=== PATIENT | female | born 1930 | race Caucasian/White ===

== ENCOUNTER 2019-02-09 15:19 | Inpatient (IN) ==
[2019-02-09] MEDS ORDERED: *HR* HYDROcodone/Acet 7.5/325 mg TABLET PO PRN ×2 (20:35→20:55)
[2019-02-09] MEDS ORDERED: Nitroglycerin 0.4 MG TAB.SUBL SL PRN (20:35)
[2019-02-09] MEDS ORDERED: Fluticasone Propionate Nasal 50 MCG/SPRAY BOTTLE NS PRN (20:35)
[2019-02-09] MEDS ORDERED: Ondansetron ODT 4 MG TAB.RAPDIS SL PRN (20:56)
[2019-02-09] MEDS ORDERED: Mag Hydrox/Al Hydrox/Simeth 30 ML UDC PO PRN (20:56)
[2019-02-09] MEDS ORDERED: Melatonin 3 MG TABLET PO PRN (21:00)
[2019-02-09] MEDS ORDERED: NON-FORMULARY MEDICATION 1 EACH EACH (Oxygen 2 L) NS SCH (21:00)
[2019-02-09] MEDS ORDERED: *HR* HYDROcodone/Acet 5/325 mg TABLET PO PRN (21:56)
[2019-02-09] MEDS: *HR* Warfarin 2 MG TABLET PO SCH (23:46)
[2019-02-09] MEDS: Famotidine 20 MG TABLET PO SCH (23:47)
[2019-02-09] MEDS: Vancomycin Oral Soln 125 MG/2.5 ML UDC PO SCH (23:48)
[2019-02-10 04:46] LABS: Basophils # 0.1 K/mcL (0.0-0.2); Basophils % 0.7 %; Eosinophils # 0.1 K/mcL (0.0-0.6); Hematocrit 37.7 % (35.3-44.9); Immature Granulocytes % 0.7 % (0-4); Lymphocytes % 10.3 %; Mean Corpuscular HGB Conc 31.8 g/dL (31.6-35.5); Mean Corpuscular Volume 91.1 fL (83.0-100.0); Mean Platelet Volume 9.7 fL (9.4-12.4); Monocytes % 8.5 %; Neutrophils # 9.5 K/mcL (1.6-8.9); Platelet Count 259 K/mcL (140-400); Red Blood Count 4.14 M/mcL (3.82-4.97); Segmented Neutrophils % 78.8 %; White Blood Count 12.1 K/mcL (4.3-11.1)
[2019-02-10 04:51] LABS: Lymphocytes # 1.3 K/mcL (0.6-4.6)
[2019-02-10 05:10] LABS: Alanine Aminotransferase 11 Units/L (7-52); Albumin 3.4 g/dL (3.5-5.7); Albumin/Globulin Ratio 1.3 (1.1-2.2); Alkaline Phosphatase 91 Units/L (34-104); Aspartate Amino Transferase 15 Units/L (13-39); BUN/Creatinine Ratio 10 (6-26); Bilirubin,Total 0.6 mg/dL (0.3-1.0); Blood Urea Nitrogen 5 mg/dL (8-23); Calcium 8.9 mg/dL (8.6-10.3); Carbon Dioxide 27 mEq/L (23-29); Chloride 104 mEq/L (98-107); Globulin 2.7 g/dL (2.4-3.5); Glucose 187 mg/dL (70-105); Magnesium 1.8 mg/dL (1.6-2.6); Osmolality,Calculated 286 (280-300); Potassium 4.3 mEq/L (3.5-5.1); Sodium 137 mEq/L (136-145); Total Protein 6.1 g/dL (6.4-8.9); eGFR For African Americans > 60 (> 60); eGFR For Non-African Americans > 60 (> 60)
[2019-02-10 05:23] LABS: INR 2.7; Prothrombin Time 30.9 Seconds (9.4-12.1)
[2019-02-10 05:24] LABS: Thyroid Stimulating Hormone 1.578 mcIU/mL (0.340-5.600)
[2019-02-10] MEDS: Multivit/Ca/Min/Fe/FA 1 TAB TABLET PO SCH (08:32)
[2019-02-10] MEDS: Mirabegron [Myrbetriq] 50 MG PO SCH (08:32)
[2019-02-10] MEDS: Nitrofurantoin (BID) 100 MG CAPSULE PO SCH ×2 (08:32→17:43)
[2019-02-10] MEDS: Famotidine 20 MG TABLET PO SCH ×2 (08:32→21:00)
[2019-02-10] MEDS: Metoprolol XL (24 HR) Succ 25 MG TAB.ER.24H PO SCH (08:32)
[2019-02-10] MEDS: Vancomycin Oral Soln 125 MG/2.5 ML UDC PO SCH ×4 (10:53→21:01)
--- NOTE | 2019-02-10 11:56 | Internal Med History&Physical ---
Date of Encounter: 02/10/19 Time of Encounter: 11:53 Assessment and Plan (1) C. difficile colitis Current visit: Yes Status: Acute Patient was treated at [facility] with oral antibiotics for her C. difficile and continues on oral vancomycin at this time. Patient continues to have loose stools. Denies any abdominal cramping. Patient remains afebrile. Most recent WBC at 12.1. We will continue with current medications and continue to monitor closely. Will evaluate patient's electrolyte status with serial labs (2) Atrial fibrillation Current visit: Yes Status: Chronic No acute issues. Patient continues with irregular heart rate with a controlled rate less than 100. We will continue on current medications which include Coumadin Qualifiers: Atrial fibrillation type: chronic Qualified Code(s): I48.2 - Chronic atrial fibrillation (3) CAD (coronary artery disease) Current visit: Yes Status: Chronic Patient with slightly labored breathing this morning which appears to have improved throughout the morning. Chest x-ray was obtained which shows slight pulmonary edema. Will review results with Dr. Ochoa. Currently patient respiratory effort appears relaxed. No hypoxia. We will continue to monitor closely Qualifiers: Coronary Disease-Associated Artery/Lesion type: unspecified vessel or lesion type [place] vs. transplanted heart: [place] heart Associated angina: angina presence unspecified Qualified Code(s): I25.10 - Atherosclerotic heart disease of [place] coronary artery without angina pectoris (4) HTN (hypertension) Current visit: Yes Status: Chronic Vital signs remained stable. We will continue with current medications. Qualifiers: Hypertension type: essential hypertension Qualified Code(s): I10 - Essential (primary) hypertension (5) UTI (urinary tract infection) Current visit: Yes Status: Acute No acute issues. Patient remains afebrile. WBC 12.1. Patient is poor historian and unable to evaluate for dysuria. Patient continues on Macrobid. Qualifiers: Urinary tract infection type: site unspecified Hematuria presence: with hematuria Qualified Code(s): N39.0 - Urinary tract infection, site not specified; R31.9 - Hematuria, unspecified (6) Diabetes Current visit: Yes Status: Chronic No acute issues. Patient is glucose appears well-controlled with most readings less than 200. We will continue with current medications and sliding scale coverage. Qualifiers: Diabetes mellitus type: type 2 Diabetes mellitus half-way insulin use: without half-way use Diabetes mellitus complication status: without complication Qualified Code(s): E11.9 - Type 2 diabetes mellitus without complications (7) Dementia Current visit: Yes Status: Chronic Patient remains confused, oriented to name only. Patient has episodes of agitation in which she becomes uncooperative and combative with staff. Patient was combative during exam this morning but approximately one hour later was relaxed and cooperative. Documentation of behavior issues noted from recent hospitalization. Patient continues with treatment for C. difficile and UTI. We will continue to monitor. Qualifiers: Dementia type: unspecified type Qualified Code(s): F03.91 - Unspecified dementia with behavioral disturbance Internal Medicine - H&P: HPI Chief complaint: C. difficile Admitted From: Hospital to Hospital Transfer History of present illness: Ms. Cárdenas is a 88 year old female, who was transferred to this facility for further rehabilitation due to generalized weakness to deconditioning, C. difficile and coronary artery disease. Patient was admitted to an [facility] hospital due to watery stools and abdominal cramping from C. difficile. Patient was treated with oral antibiotics and per medical records had improved and was discharged to this facility for rehabilitation. Patient also was found to have a UTI and remains on Macrobid at this time. Per medical records patient was recently treated for ESBL UTI last month. Patient's stay has been complicated with confusion and combativeness, which was evident this morning when she was combative with nursing staff and during her exam. Patient was later reexamined and appeared more appropriate at that time, able to answer simple questions appropriately and follows simple commands. Patient continues to have some difficulty following most directions and answering complex questions but was cooperative for an exam. Most of her history is being obtained through medical records as no family is present at this time. Patient has a history of dementia, atrial fibrillation, GERD, hypertension, diabetes, coronary artery disease and CVA. This morning patient was being evaluated due to her respiratory status which showed slight labored breathing. Patient was noted to have diminished breath sounds throughout her lower ware. Respiratory rate remained at 2022/minutes. Oximetry at that time showed a 97% saturation with a heart rate of 105. When patient was later reevaluated she was sitting in a chair and appeared more comfortable with her respiratory status. No signs of labored breathing were noted at that time and her respiratory rate was at 1618/minutes. Chest x-ray was obtained which showed slight pulmonary edema. 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 Psychiatric history: no psych history - Past Surgical History Surgical History: coronary bypass (CABG), hysterectomy Additional surgical history: bilat knee replacement, right shoulder replacement - Social History Smoking Status: Never smoker Smokeless Tobacco Status: No Alcohol use: none Drug use: none - Family History Father Family Member Ethnicity: Non- Living Status: Hx Family Cancer: Yes (Lung) Mother Family Member Ethnicity: Non- Living Status: Hx Family Cardiac Disorders: Yes Brother Family Member Ethnicity: Non- Living Status: Hx Family Cardiac Disorders: Yes Sister Adopted: No Family Member Ethnicity: Non- Living Status: Hx Family Endocrine Disorder: Yes (DM) Hx Family Neurologic Disorders: Yes (Alzheimer's disease) Internal Medicine - H&P: Meds Ferrous Sulfate [Iron] 325 mg PO DAILY 07/12/17 [History] Furosemide [Lasix] 40 mg PO BID 07/12/17 [History] Glimepiride [Amaryl] 2 mg PO DAILY 07/12/17 [History] Nitroglycerin [Nitrostat] 0.4 mg SL Q5M PRN 07/12/17 [History] Potassium Chloride [K-Tab ER] 20 meq PO DAILY 07/12/17 [History] Simvastatin [Zocor] 20 mg PO HS 07/12/17 [History] Albuterol Sulfate [Proair Hfa] 2 puff IH Q4H PRN 10/18/17 [History] Multivitamin [One Daily Multivitamin] 1 tab PO DAILY 10/18/17 [History] Oxygen 2 l NS HS 10/18/17 [History] Fluticasone Propionate Nasal [Flonase] 1 spray IN BID PRN 01/24/19 [History] Ranitidine HCl [Heartburn Relief] 150 mg PO BID 01/24/19 [History] Warfarin [Coumadin] 2 mg PO DAILY 01/24/19 [History] Acetaminophen [Tylenol Arthritis] 1,300 mg PO BID 01/25/19 [History] DULoxetine [Cymbalta] 30 mg PO DAILY 01/25/19 [History] Metoprolol Succinate [Toprol Xl] 25 mg PO DAILY 01/25/19 [History] Mirabegron [Myrbetriq] 50 mg PO DAILY 01/25/19 [History] HYDROcodone/Acet 7.5/325 mg [Cranks 7.5-325 mg] 0.5 tab PO TID PRN 5 Days #15 tablet 02/09/19 [Rx] Nitrofurantoin (BID) [Macrobid] 100 mg PO BIDWM #7 capsule 02/09/19 [Rx] Vancomycin Oral Soln [Firvanq] 250 mg PO QID 11 Days udc 02/09/19 [Rx] Allergy/AdvReac Type Severity Reaction Status Date / Time Penicillins AdvReac Anaphylaxis Verified 01/25/19 08:37 All Systems PM: A 10-system review of systems was performed and is negative for pertinent findings except as documented above in the HPI. - Constitutional Constitutional: as per HPI, no chills, no fever(s), no night sweats - EENT Eyes: as per HPI, no change in vision, no discharge, no pain, no photophobia Ears: as per HPI, no ear discharge, no ear pain, no tinnitus Nose, mouth and throat: as per HPI, no dysphagia, no nasal discharge, no neck pain, no sore throat - Breasts Breasts: as per HPI - Cardiovascular Cardiovascular ROS IM: as per HPI, no chest pain, no diaphoresis, no dyspnea, no lightheadedness, no palpitations, no syncope - Respiratory Respiratory: as per HPI, no cough, no dyspnea, no wheezing, no excessive phlegm production - Gastrointestinal Gastrointestinal: as per HPI, no abdominal pain, no diarrhea, no hematemesis, no hematochezia, no melena, no nausea, no vomiting - Genitourinary Genitourinary: as per HPI, no change in urinary stream, no dysuria, no flank pain, no hematuria Menstruation: as per HPI - Musculoskeletal Musculoskeletal ROS IM: as per HPI, no numbness, no tingling - Integumentary Integumentary IM: as per HPI, no rash, no unusual bruising - Neurological Neurological ROS: as per HPI, no confusion, no convulsions, no focal weakness, no numbness, no tingling, no tremor(s) - Psychiatric Psychiatric: as per HPI - Endocrine Endocrine IM: as per HPI - Hematologic/Lymphatic Hematologic/Lymphatic: as per HPI, no easy bruising - Constitutional Vitals: Temp Pulse Resp BP Pulse Ox 97.4 F L 96 20 145/87 96 02/10/19 11:05 02/10/19 11:05 02/10/19 11:05 02/10/19 11:05 02/10/19 11:05 General appearance: Present: A&O X 1 Exam: Patient is oriented to name only. Patient able to answer simple questions appropriately but becomes confused with any complex questions. He unable to follow simple directions but with complexed task she becomes confused. Patient at times can be agitated and combative with staff - Head Head exam: Present: atraumatic, normocephalic - Eye Eye exam: Present: PERRL, conjuntiva pink, sclera anicteric Pupils: Present: PERRL - Neck Neck exam general surgery: Present: supple, trachea midline. Absent: lymphadenopathy - Respiratory Respiratory exam: Present: decreased breath sounds, CTAB. Absent: accessory muscle use, rales, rhonchi, wheezes Additional comments: Currently patient appears relaxed with respiratory status with respiratory rate at 1618/limits. Lungs are clear throughout upper ware but noted diminished lower half of lung ware. Oximetry at 97% on 2 L oxygen. - Cardiovascular Cardiovascular exam: Present: irregular rhythm, RRR, +S1, +S2. Absent: diastolic murmur, gallop, rubs, systolic murmur Additional comments: Heart rate remains irregular due to atrial fibrillation. Ventricular rate controlled at less than 100 bpm. - GI/Abdominal GI/Abdominal exam: Present: normal bowel sounds, soft, no peritoneal signs. Absent: distended, tenderness - Extremities Exam Extremities exam: Present: warm, radial pulses palpable and symmetrical. Absent: calf tenderness, cyanotic, pedal edema - Neurological Exam Neurological exam: Present: CN II-XII intact, oriented X3, no focal deficits. Absent: pronater drift, facial droop, speech deficit - Skin Skin exam: Present: dry, intact Internal Med - H&P Results - Labs CBC & Chem 7: 02/10/19 04:30 02/10/19 04:30 Labs: Short CBC 02/10/19 Range/Units 04:30 WBC 12.1 H (4.3-11.1) K/mcL Hgb 12.0 (11.5-15.4) g/dL Hct 37.7 (35.3-44.9) % Plt Count 259 (140-400) K/mcL Neutrophils # 9.5 H (1.6-8.9) K/mcL BMP 02/10/19 04:30 Sodium 137 Potassium 4.3 Chloride 104 Carbon Dioxide 27 BUN 5 L Creatinine 0.51 L Glucose 187 H Calcium 8.9 Liver Function 02/10/19 Range/Units 04:30 Total Bilirubin 0.6 (0.3-1.0) mg/dL AST 15 (13-39) Units/L ALT 11 (7-52) Units/L Alkaline Phosphatase 91 (34-104) Units/L Albumin 3.4 L (3.5-5.7) g/dL - Impressions ITS Impressions Chest X-Ray 02/10/19 08:18 IMPRESSION: Pulmonary edema. Small-moderate pleural effusions increased in size from 02/04/2019. D/ / Kvng Henriquez MD / Kvng Henriquez MD Interpreting Provider: Kvng Henriquez MD
[2019-02-10] MEDS: Furosemide 40 MG TABLET PO SCH (13:49)
[2019-02-10] MEDS ORDERED: Dextrose Gel 15 GM/37.5 ML TUBE PO PRN ×2 (15:13)
[2019-02-10] MEDS ORDERED: *HR* Dextrose 50 % in Water (Syg) 50 ML SYRINGE IVP PRN (15:13)
[2019-02-10] MEDS ORDERED: D5% in Water 1,000 ML IVC PRN (15:13)
[2019-02-10] MEDS: *HR* Warfarin 2 MG TABLET PO SCH (17:42)
[2019-02-10] MEDS: Insulin LISPRO 300 UNITS/3 ML VIAL SQ SCH ×2 (17:43→21:00)
[2019-02-11 07:06] LABS: BUN/Creatinine Ratio 9 (6-26); Blood Urea Nitrogen 5 mg/dL (8-23); Calcium 8.8 mg/dL (8.6-10.3); Carbon Dioxide 31 mEq/L (23-29); Chloride 103 mEq/L (98-107); Glucose 186 mg/dL (70-105); Osmolality,Calculated 288 (280-300); Potassium 3.7 mEq/L (3.5-5.1); Sodium 138 mEq/L (136-145); eGFR For African Americans > 60 (> 60); eGFR For Non-African Americans > 60 (> 60)
[2019-02-11] MEDS: Furosemide 40 MG TABLET PO SCH (09:17)
[2019-02-11] MEDS: Multivit/Ca/Min/Fe/FA 1 TAB TABLET PO SCH (09:17)
[2019-02-11] MEDS: Metoprolol XL (24 HR) Succ 25 MG TAB.ER.24H PO SCH (09:17)
[2019-02-11] MEDS: Famotidine 20 MG TABLET PO SCH ×2 (09:17→21:09)
[2019-02-11] MEDS: Nitrofurantoin (BID) 100 MG CAPSULE PO SCH ×2 (09:17→19:05)
[2019-02-11] MEDS: Lactobacillus 1 EACH CAP.SPRINK PO SCH (09:17)
[2019-02-11] MEDS: Mirabegron [Myrbetriq] 50 MG PO SCH (09:28)
[2019-02-11] MEDS: Vancomycin Oral Soln 125 MG/2.5 ML UDC PO SCH ×4 (09:30→21:10)
[2019-02-11] MEDS: Insulin LISPRO 300 UNITS/3 ML VIAL SQ SCH ×3 (13:41→21:14)
--- NOTE | 2019-02-11 17:55 | Internal Med Progress Note ---
Date of Encounter: 02/11/19 Time of Encounter: 15:20 - Assessment and plan (1) Clostridioides difficile diarrhea Current Visit: No Status: Acute Assessment and plan: resolving causing dehydration and malnutrition appetite slowly improving as well as fluid intake continue oral vanco support and monitor intake and vitamin levels will check b12 iron vit d albumen will add probiotic and carafate treat thrush with nystatin (2) UTI (urinary tract infection) Current Visit: Yes Status: Acute Assessment and plan: has been on macrodantin oral day 5 will recheck urine will add low dose vit c Qualifiers: Urinary tract infection type: site unspecified Hematuria presence: with hematuria Qualified Code(s): N39.0 - Urinary tract infection, site not specified; R31.9 - Hematuria, unspecified - Subjective Interval history: 88 Yo WF transfer to [facility] for rehab after severe c diff diarrhea and dehydration. She was complicated with delerium and acute kidney injury. Her family reports pt is looking better she is taking oral vanco for c diff had 2 formed stools today ate some food today has not eaten in 2 weeks per family denies cp or sob still having bloating and gas feels tired has had some hallucination but not today is on duloxitine denies si was on ppi for years now on h2 alexus co gerd no melana General: In no apparent distress, alert and oriented 1. HEENT Nose: Patent without lesion noted. Mouth: furrowed tongue oral thrush . She has full upper plate dentures. Dentition is otherwise unremarkable. Neck: Supple with trachea midline. There is no thyromegaly or adenopathy and carotids are 2+ without bruit heard. Respiratory: No use of accessory muscles. Lungs are clear throughout. Normal airflow. Cardiovascular: Irregularly irregular consistent with atrial fibrillation, rate controlled, without murmur appreciated. Abdomen: Bowel sounds are hyper soft nt bloating . Extremities: No cyanosis clubbing or edema. Neurological: A and O 1. Cranial nerves II through XII are intact. No focal deficits and no abnormal movements or postures. Skin: Warm and non-diaphoretic with no lesions noted. Breasts, pelvic and rectal: Not examined. - Constitutional Vitals: Temp Pulse Resp BP Pulse Ox 97.6 F 100 20 142/76 96 02/11/19 07:14 02/11/19 07:14 02/11/19 07:14 02/11/19 07:14 02/11/19 07:14 General appearance: Present: A&O X 1 Internal Medicine: Result - Labs CBC & Chem 7: 02/10/19 04:30 02/11/19 06:30 Labs: BMP 02/11/19 06:30 Sodium 138 Potassium 3.7 Chloride 103 Carbon Dioxide 31 H BUN 5 L Creatinine 0.57 L Glucose 186 H Calcium 8.8 - ABG Interpretation ABG results: PT/INR, D-dimer PT 30.9 Seconds (9.4-12.1) H 02/10/19 04:30 Consult Discharge Plan - Plan Referrals: Corina Seo, CLOTHES DESIGNER [Primary Care Provider] -
[2019-02-11] MEDS: *HR* Warfarin 2 MG TABLET PO SCH (19:04)
[2019-02-11] MEDS: Nystatin SUSP 5 ML UD.LIQ PO SCH (21:09)
[2019-02-11] MEDS: Acetaminophen 325 MG TABLET PO PRN (21:10)
[2019-02-11] MEDS: Ascorbic Acid 500 MG TABLET PO SCH (21:10)
[2019-02-12 05:03] LABS: Hematocrit 36.4 % (35.3-44.9); Hemoglobin 11.8 g/dL (11.5-15.4); Mean Corpuscular HGB Conc 32.4 g/dL (31.6-35.5); Mean Corpuscular Hemoglobin 29.5 pg (28.0-33.3); Mean Platelet Volume 9.5 fL (9.4-12.4); Platelet Count 250 K/mcL (140-400); Red Cell Distribution Width 13.3 % (11.5-14.5); White Blood Count 9.2 K/mcL (4.3-11.1)
[2019-02-12 05:27] LABS: BUN/Creatinine Ratio 11 (6-26); Blood Urea Nitrogen 6 mg/dL (8-23); Calcium 8.7 mg/dL (8.6-10.3); Carbon Dioxide 32 mEq/L (23-29); Chloride 99 mEq/L (98-107); Glucose 196 mg/dL (70-105); Osmolality,Calculated 287 (280-300); Potassium 3.3 mEq/L (3.5-5.1); Sodium 137 mEq/L (136-145); eGFR For African Americans > 60 (> 60); eGFR For Non-African Americans > 60 (> 60)
[2019-02-12 07:54] LABS: INR 3.6; Prothrombin Time 40.9 Seconds (9.4-12.1)
[2019-02-12] MEDS: Nitrofurantoin (BID) 100 MG CAPSULE PO SCH ×2 (08:14→17:12)
[2019-02-12] MEDS: Ascorbic Acid 500 MG TABLET PO SCH ×2 (08:14→20:31)
[2019-02-12] MEDS: Famotidine 20 MG TABLET PO SCH ×2 (08:14→20:31)
[2019-02-12] MEDS: Metoprolol XL (24 HR) Succ 25 MG TAB.ER.24H PO SCH (08:14)
[2019-02-12] MEDS: Multivit/Ca/Min/Fe/FA 1 TAB TABLET PO SCH (08:14)
[2019-02-12] MEDS: Furosemide 40 MG TABLET PO SCH (08:14)
[2019-02-12] MEDS: Lactobacillus 1 EACH CAP.SPRINK PO SCH (08:14)
[2019-02-12] MEDS: Insulin LISPRO 300 UNITS/3 ML VIAL SQ SCH ×3 (08:14→17:34)
[2019-02-12] MEDS: Nystatin SUSP 5 ML UD.LIQ PO SCH ×4 (08:21→20:31)
[2019-02-12] MEDS: Mirabegron [Myrbetriq] 50 MG PO SCH (08:22)
[2019-02-12] MEDS: Vancomycin Oral Soln 125 MG/2.5 ML UDC PO SCH ×4 (08:27→20:30)
[2019-02-12 11:26] LABS: % Iron Saturation 21 % (15-50); Iron 40 mcg/dL (50-170); Transferrin 137 mg/dL (203-362)
--- NOTE | 2019-02-12 16:38 | Internal Med Progress Note ---
Date of Encounter: 02/12/19 Time of Encounter: 15:30 - Assessment and plan (1) Clostridioides difficile diarrhea Current Visit: No Status: Acute (2) UTI (urinary tract infection) Current Visit: Yes Status: Acute Qualifiers: Urinary tract infection type: site unspecified Hematuria presence: with hematuria Qualified Code(s): N39.0 - Urinary tract infection, site not specified; R31.9 - Hematuria, unspecified - Subjective Interval history: 88 Yo WF transfer to [facility] for rehab after severe c diff diarrhea and dehydration. She was complicated with delerium which seems to be slightly clearing. She reports that she saw hallucinations. Denies having them today. she is taking oral vanco for c diff had some formed stools today ate some food today still not eating well Prealbumen low at 11 k low at 3.3 on 20 meq daily potassium will get extra 40 today may benefit from megace blood sugars 170 - 200 pt dtr specifies she does not want pt having slide scale insulin has not eaten in 2 weeks when ill per family so will be somewhat malnourished denies cp or sob still having bloating and gas feels tired mood is stable on duloxitine denies si was on ppi for years now on h2 alexus c/o gerd states that carafate addition is helpful mouth feeling better on nystatin no active bleeding hb stable at 11 she is on chronic coumadin for a fib and inr is 3.6 today will order pharmacy to dose coumadin she is on macrodantin for uti General: In no apparent distress, alert and oriented 2 talkative good eye contact . HEENT neg except Mouth: furrowed tongue improving oral thrush . She has full upper plate dentures. Dentition is otherwise unremarkable. Neck: Supple with trachea midline. There is no thyromegaly and carotids are 2+ without bruit heard. Respiratory: No use of accessory muscles. Lungs are clear throughout. Normal airflow. Cardiovascular: Irregularly irregular consistent with atrial fibrillation, rate controlled, without murmur appreciated. Abdomen: Bowel sounds are hyper soft nt bloating . Extremities: No cyanosis clubbing or edema. pulses palp trace bilat Neurological: A and O 1. Cranial nerves II through XII are intact. No focal deficits . Skin: Warm and non-diaphoretic with no lesions noted. - Constitutional Vitals: Temp Pulse Resp BP Pulse Ox 98.6 F 100 18 136/94 99 02/12/19 08:40 02/12/19 10:54 02/12/19 10:54 02/12/19 10:54 02/12/19 10:54 General appearance: Present: A&O X 1 Internal Medicine: Result - Labs CBC & Chem 7: 02/12/19 04:47 02/12/19 04:47 Labs: Short CBC 02/12/19 Range/Units 04:47 WBC 9.2 (4.3-11.1) K/mcL Hgb 11.8 (11.5-15.4) g/dL Hct 36.4 (35.3-44.9) % Plt Count 250 (140-400) K/mcL BMP 02/12/19 04:47 Sodium 137 Potassium 3.3 L Chloride 99 Carbon Dioxide 32 H BUN 6 L Creatinine 0.53 L Glucose 196 H Calcium 8.7 - ABG Interpretation ABG results: PT/INR, D-dimer PT 40.9 Seconds (9.4-12.1) H 02/12/19 07:28 Consult Discharge Plan - Plan Referrals: Corina Seo, FIELD HEALTH OFFICER [Primary Care Provider] -
[2019-02-12] MEDS ORDERED: Insulin LISPRO 300 UNITS/3 ML VIAL SQ PRN ×2 (16:44)
[2019-02-12] MEDS ORDERED: Warfarin perPT PO PRN (18:00)
[2019-02-12 19:50] LABS: Bilirubin,Urine Negative (Negative); Blood,Urine Trace-intact (Negative); Clarity,Urine Slightly Cloudy (Clear); Color,Urine Yellow (Yellow); Glucose,Urine (UA) Normal (Normal); Ketones,Urine Negative (Negative); Leukocyte Esterase,Urine Negative (Negative); Nitrite,Urine Negative (Negative); Protein,Urine Negative (Neg-Trace); Urobilinogen,Urine Normal (Normal)
[2019-02-12 19:51] LABS: RBC,Urine 0-3 per hpf (0-3); Squamous Epithelial Cell,Urine Few per lpf (None-Few)
[2019-02-13 06:10] LABS: Hematocrit 36.6 % (35.3-44.9); Hemoglobin 11.6 g/dL (11.5-15.4); INR 3.4; Mean Corpuscular HGB Conc 31.7 g/dL (31.6-35.5); Mean Corpuscular Volume 91.5 fL (83.0-100.0); Mean Platelet Volume 9.6 fL (9.4-12.4); Platelet Count 249 K/mcL (140-400); Prothrombin Time 38.8 Seconds (9.4-12.1); Red Cell Distribution Width 13.4 % (11.5-14.5)
[2019-02-13 06:21] LABS: BUN/Creatinine Ratio 12 (6-26); Blood Urea Nitrogen 6 mg/dL (8-23); Calcium 8.6 mg/dL (8.6-10.3); Carbon Dioxide 33 mEq/L (23-29); Chloride 99 mEq/L (98-107); Glucose 210 mg/dL (70-105); Osmolality,Calculated 290 (280-300); Potassium 3.5 mEq/L (3.5-5.1); Sodium 138 mEq/L (136-145); eGFR For African Americans > 60 (> 60); eGFR For Non-African Americans > 60 (> 60)
[2019-02-13] MEDS: Ascorbic Acid 500 MG TABLET PO SCH ×2 (07:37→21:40)
[2019-02-13] MEDS: Multivit/Ca/Min/Fe/FA 1 TAB TABLET PO SCH (07:39)
[2019-02-13] MEDS: Nitrofurantoin (BID) 100 MG CAPSULE PO SCH ×2 (07:39→17:05)
[2019-02-13] MEDS: Nystatin SUSP 5 ML UD.LIQ PO SCH ×4 (07:40→21:41)
[2019-02-13] MEDS: Lactobacillus 1 EACH CAP.SPRINK PO SCH (07:40)
[2019-02-13] MEDS: Famotidine 20 MG TABLET PO SCH ×2 (07:40→21:42)
[2019-02-13] MEDS: Metoprolol XL (24 HR) Succ 25 MG TAB.ER.24H PO SCH (07:40)
[2019-02-13] MEDS: Furosemide 40 MG TABLET PO SCH ×2 (07:40→21:40)
[2019-02-13] MEDS: Mirabegron [Myrbetriq] 50 MG PO SCH (07:41)
[2019-02-13] MEDS: Vancomycin Oral Soln 125 MG/2.5 ML UDC PO SCH ×4 (09:04→21:41)
--- NOTE | 2019-02-13 09:59 | Internal Med Progress Note ---
Date of Encounter: 02/13/19 Time of Encounter: 09:57 - Assessment and plan (1) Atrial fibrillation Current Visit: Yes Status: Chronic Assessment and plan: Continue Coumadin. Monitor INR. Rate and rhythm stable. Qualifiers: Atrial fibrillation type: chronic Qualified Code(s): I48.2 - Chronic atrial fibrillation (2) UTI (urinary tract infection) Current Visit: Yes Status: Acute Assessment and plan: Improving. Continue Macrobid. Denies any urinary symptoms. Qualifiers: Urinary tract infection type: site unspecified Hematuria presence: with hematuria Qualified Code(s): N39.0 - Urinary tract infection, site not specified; R31.9 - Hematuria, unspecified (3) C. difficile colitis Current Visit: Yes Status: Acute Assessment and plan: Improving. Continue vancomycin. Continue contact precautions (4) Dementia Current Visit: Yes Status: Chronic Assessment and plan: Continue supportive care Qualifiers: Dementia type: unspecified type Qualified Code(s): F03.91 - Unspecified dementia with behavioral disturbance - Time Spent With Patient less than 15 minutes - Subjective Interval history: Currently lying in bed, states that she did not sleep well last night. Last b owel movement was this morning. Patient denies any pain or discomfort. Denies shortness of breath, chest pain, fever, chills, nausea vomiting or diarrhea. Remains in contact precautions for c-diff. Being treated with antibiotics for UTI. - Constitutional Vitals: Temp Pulse Resp BP Pulse Ox 98.8 F 89 16 156/80 97 02/13/19 07:24 02/13/19 07:24 02/13/19 07:24 02/13/19 07:24 02/13/19 07:24 General appearance: Present: cooperative, A&O X 1, pleasant, no acute distress, answers questions appropriately - Head Head exam: Present: atraumatic, normocephalic - Eye Eye exam: Present: PERRL, conjuntiva pink, sclera anicteric Pupils: Present: PERRL - Neck Neck exam general surgery: Present: supple, trachea midline. Absent: lymphadenopathy - Respiratory Respiratory exam: Present: CTAB. Absent: accessory muscle use, rales, rhonchi, wheezes - Cardiovascular Cardiovascular exam: Present: irregular rhythm, RRR, +S1, +S2. Absent: diastolic murmur, gallop, rubs, systolic murmur - GI/Abdominal GI/Abdominal exam: Present: normal bowel sounds, soft, no peritoneal signs. Absent: distended, tenderness - Extremities Exam Extremities exam: Present: warm, radial pulses palpable and symmetrical. Absent: calf tenderness, cyanotic, pedal edema - Neurological Exam Neurological exam: Present: CN II-XII intact, oriented X3, no focal deficits. Absent: pronater drift, facial droop, speech deficit - Skin Skin exam: Present: dry, intact Internal Medicine: Result - Labs CBC & Chem 7: 02/13/19 06:00 02/13/19 06:00 Labs: Short CBC 02/13/19 Range/Units 06:00 WBC 10.0 (4.3-11.1) K/mcL Hgb 11.6 (11.5-15.4) g/dL Hct 36.6 (35.3-44.9) % Plt Count 249 (140-400) K/mcL BMP 02/13/19 06:00 Sodium 138 Potassium 3.5 Chloride 99 Carbon Dioxide 33 H BUN 6 L Creatinine 0.51 L Glucose 210 H Calcium 8.6 Urine 02/12/19 Range/Units 19:00 Urine Color Yellow (Yellow) Urine Clarity Slightly Cloudy A (Clear) Urine pH 5.0 (5.0-8.0) pH Units Ur Specific [place] 1.010 (1.010-1.025) Urine Protein Negative (Neg-Trace) mg/dL Urine Glucose (UA) Normal (Normal) mg/dL - ABG Interpretation ABG results: PT/INR, D-dimer PT 38.8 Seconds (9.4-12.1) H 02/13/19 06:00 Consult Discharge Plan - Plan Referrals: Corina Seo, MARKETING CAMPAIGN ANALYST [Primary Care Provider] -
[2019-02-14 05:52] LABS: INR 2.5; Prothrombin Time 28.2 Seconds (9.4-12.1)
[2019-02-14] MEDS: Nitrofurantoin (BID) 100 MG CAPSULE PO SCH ×3 (09:27→17:34)
[2019-02-14] MEDS: Furosemide 40 MG TABLET PO SCH ×3 (09:27→17:34)
[2019-02-14] MEDS: Lactobacillus 1 EACH CAP.SPRINK PO SCH ×2 (09:28→11:02)
[2019-02-14] MEDS: Metoprolol XL (24 HR) Succ 25 MG TAB.ER.24H PO SCH ×2 (09:29→11:00)
[2019-02-14] MEDS: Multivit/Ca/Min/Fe/FA 1 TAB TABLET PO SCH ×2 (09:29→11:00)
[2019-02-14] MEDS: Nystatin SUSP 5 ML UD.LIQ PO SCH ×4 (09:29→21:03)
[2019-02-14] MEDS: Famotidine 20 MG TABLET PO SCH ×3 (09:29→20:53)
[2019-02-14] MEDS: Mirabegron [Myrbetriq] 50 MG PO SCH (09:29)
[2019-02-14] MEDS: Ascorbic Acid 500 MG TABLET PO SCH ×3 (09:29→20:53)
[2019-02-14] MEDS: Vancomycin Oral Soln 125 MG/2.5 ML UDC PO SCH ×4 (09:29→20:55)
--- NOTE | 2019-02-14 10:57 | Internal Med Progress Note ---
Date of Encounter: 02/14/19 Time of Encounter: 10:56 - Assessment and plan (1) Atrial fibrillation Current Visit: Yes Status: Chronic Assessment and plan: Continue Coumadin. Monitor INR. Rate and rhythm stable. Qualifiers: Atrial fibrillation type: chronic Qualified Code(s): I48.2 - Chronic atrial fibrillation (2) UTI (urinary tract infection) Current Visit: Yes Status: Acute Assessment and plan: Improving. Continue Macrobid. Denies any urinary symptoms. Qualifiers: Urinary tract infection type: site unspecified Hematuria presence: with hematuria Qualified Code(s): N39.0 - Urinary tract infection, site not specified; R31.9 - Hematuria, unspecified (3) C. difficile colitis Current Visit: Yes Status: Acute Assessment and plan: Improving. Continue vancomycin. Continue contact precautions (4) Dementia Current Visit: Yes Status: Chronic Assessment and plan: Continue supportive care Qualifiers: Dementia type: unspecified type Qualified Code(s): F03.91 - Unspecified dementia with behavioral disturbance - Time Spent With Patient less than 15 minutes - Subjective Interval history: Currently lying in bed, states that she did not sleep well last night. refused medications this am, but later agreed to take them. Last bowel movement was this morning. Patient denies any pain or discomfort. Denies shortness of breath, chest pain, fever, chills, nausea vomiting or diarrhea. Remains in contact precautions for c-diff. - Constitutional Vitals: Temp Pulse Resp BP Pulse Ox 97.8 F 98 16 137/80 96 02/14/19 07:15 02/14/19 07:15 02/14/19 07:15 02/14/19 07:15 02/14/19 07:15 General appearance: Present: cooperative, A&O X 1, pleasant, no acute distress, answers questions appropriately - Head Head exam: Present: atraumatic, normocephalic - Eye Eye exam: Present: PERRL, conjuntiva pink, sclera anicteric Pupils: Present: PERRL - Neck Neck exam general surgery: Present: supple, trachea midline. Absent: lymphadenopathy - Respiratory Respiratory exam: Present: CTAB. Absent: accessory muscle use, rales, rhonchi, wheezes - Cardiovascular Cardiovascular exam: Present: RRR, +S1, +S2. Absent: diastolic murmur, gallop, rubs, systolic murmur - GI/Abdominal GI/Abdominal exam: Present: normal bowel sounds, soft, no peritoneal signs. Absent: distended, tenderness - Extremities Exam Extremities exam: Present: warm, radial pulses palpable and symmetrical. Absent: calf tenderness, cyanotic, pedal edema - Neurological Exam Neurological exam: Present: CN II-XII intact, oriented X3, no focal deficits. Absent: pronater drift, facial droop, speech deficit - Skin Skin exam: Present: dry, intact Internal Medicine: Result - Labs CBC & Chem 7: 02/13/19 06:00 02/13/19 06:00 - ABG Interpretation ABG results: PT/INR, D-dimer PT 28.2 Seconds (9.4-12.1) H 02/14/19 05:35 Consult Discharge Plan - Plan Referrals: Corina Seo, TECHNICAL SYSTEMS ARCHITECT [Primary Care Provider] -
[2019-02-14] MEDS ORDERED: Insulin LISPRO 300 UNITS/3 ML VIAL SQ ONE (17:06)
[2019-02-14] MEDS ORDERED: *HR* Warfarin 2 MG TABLET PO ONE (18:00)
[2019-02-15 06:34] LABS: INR 2.3
[2019-02-15] MEDS: Metoprolol XL (24 HR) Succ 25 MG TAB.ER.24H PO SCH (08:01)
[2019-02-15] MEDS: Nystatin SUSP 5 ML UD.LIQ PO SCH ×4 (08:01→20:35)
[2019-02-15] MEDS: Famotidine 20 MG TABLET PO SCH ×2 (08:01→20:35)
[2019-02-15] MEDS: Furosemide 40 MG TABLET PO SCH ×2 (08:03→17:03)
[2019-02-15] MEDS: Nitrofurantoin (BID) 100 MG CAPSULE PO SCH (08:03)
[2019-02-15] MEDS: Multivit/Ca/Min/Fe/FA 1 TAB TABLET PO SCH (08:04)
[2019-02-15] MEDS: Ascorbic Acid 500 MG TABLET PO SCH ×2 (08:04→20:35)
[2019-02-15] MEDS: Vancomycin Oral Soln 125 MG/2.5 ML UDC PO SCH ×4 (08:06→20:36)
[2019-02-15] MEDS: Mirabegron [Myrbetriq] 50 MG PO SCH (08:19)
[2019-02-15] MEDS: Lactobacillus 1 EACH CAP.SPRINK PO SCH (08:19)
--- NOTE | 2019-02-15 10:21 | Internal Med Progress Note ---
Date of Encounter: 02/15/19 Time of Encounter: 10:18 - Assessment and plan (1) C. difficile colitis Current Visit: Yes Status: Acute Assessment and plan: No acute issues reported. Patient continues with loose stools. We will co ntinue on oral vancomycin. Afebrile. (2) Atrial fibrillation Current Visit: Yes Status: Chronic Assessment and plan: No acute issues. Patient's heart rate has remained controlled less than 100. Patient continues on current medication Qualifiers: Atrial fibrillation type: chronic Qualified Code(s): I48.2 - Chronic atrial fibrillation (3) CAD (coronary artery disease) Current Visit: Yes Status: Chronic Assessment and plan: No acute issues. Patient denies any chest palpitations or discomforts. We will continue on current medications. Vital signs stable Qualifiers: Coronary Disease-Associated Artery/Lesion type: unspecified vessel or lesion type [place] vs. transplanted heart: [place] heart Associated angina: angina presence unspecified Qualified Code(s): I25.10 - Atherosclerotic heart disease of [place] coronary artery without angina pectoris (4) HTN (hypertension) Current Visit: Yes Status: Chronic Assessment and plan: Vital signs remained stable. We will continue on current medications. Qualifiers: Hypertension type: essential hypertension Qualified Code(s): I10 - Es sential (primary) hypertension (5) UTI (urinary tract infection) Current Visit: Yes Status: Acute Assessment and plan: No acute issues. Patient denies any dysuria or frequency. Patient's antibiotics for UTI have finished their course today. We will continue to monitor closely Qualifiers: Urinary tract infection type: site unspecified Hematuria presence: with hematuria Qualified Code(s): N39.0 - Urinary tract infection, site not specified; R31.9 - Hematuria, unspecified (6) Diabetes Current Visit: Yes Status: Chronic Assessment and plan: Patient's glucose remains poorly controlled with most fingersticks readings greater than 200. Nursing has reported patient with noncompliance with diet where she will not eat much on her trays but will eat different foods that were brought in that are high calorie. Patient's diet was discussed with patient and her daughter. Treatment plans were discussed and we will continue with current fingersticks and sliding scale insulin. Qualifiers: Diabetes mellitus type: type 2 Diabetes mellitus [employer] intermediary insulin use: w [facility] ocean [employer] intermediary use Diabetes mellitus complication status: without compl ication Qualified Code(s): E11.9 - Type 2 diabetes mellitus without compl ications (7) Dementia Current Visit: Yes Status: Chronic Assessment and plan: No acute issues. Patient is appropriate and compliant during exam and while [place] is present. No reported behavior issues from nursing and therapy staff will patient will refuse therapy or treatment at times. 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 Patient with multiple complaints about taking her medications and the quality of food. Patient's daughter is at bedside. Patient's diet compliance due to her diabetes was discussed with reports of noncompliance from nursing. - Constitutional Vitals: Temp Pulse Resp BP Pulse Ox 98.5 F 99 16 150/78 95 02/15/19 07:16 02/15/19 07:16 02/15/19 07:16 02/15/19 07:16 02/15/19 07:16 General appearance: Present: cooperative, A&O X 1, A&O X 3, pleasant, no acute distress, answers questions appropriately Exam: Patient currently is appropriate and cooperative, but reportedly has had behavior issues reported over the past few days becoming agitated with care - Head Head exam: Present: atraumatic, normocephalic - Eye Eye exam: Present: PERRL, conjuntiva pink, sclera anicteric Pupils: Present: PERRL - Neck Neck exam general surgery: Present: supple, trachea midline. Absent: lymphadenopathy - Respiratory Respiratory exam: Present: decreased breath sounds, CTAB. Absent: accessory muscle use, rales, rhonchi, wheezes - Cardiovascular Cardiovascular exam: Present: RRR, +S1, +S2. Absent: diastolic murmur, gallop, rubs, systolic murmur - GI/Abdominal GI/Abdominal exam: Present: normal bowel sounds, soft, no peritoneal signs. Absent: distended, tenderness - Extremities Exam Extremities exam: Present: warm, radial pulses palpable and symmetrical. Absent: calf tenderness, cyanotic, pedal edema - Neurological Exam Neurological exam: Present: CN II-XII intact, oriented X3, no focal deficits. Absent: pronater drift, facial droop, speech deficit - Skin Skin exam: Present: dry, intact Internal Medicine: Result - Labs CBC & Chem 7: 02/13/19 06:00 02/13/19 06:00 - ABG Interpretation ABG results: PT/INR, D-dimer PT 26.0 Seconds (9.4-12.1) H 02/15/19 06:22 Consult Discharge Plan - Plan Referrals: Corina Seo, PIPE SMOKER MACHINE OPERATOR [Primary Care Provider] -
[2019-02-15] MEDS ORDERED: *HR* Warfarin 2 MG TABLET PO ONE (18:00)
[2019-02-16] MEDS: Ascorbic Acid 500 MG TABLET PO SCH ×2 (07:53→21:05)
[2019-02-16] MEDS: Metoprolol XL (24 HR) Succ 25 MG TAB.ER.24H PO SCH (07:53)
[2019-02-16] MEDS: Lactobacillus 1 EACH CAP.SPRINK PO SCH (07:53)
[2019-02-16] MEDS: Nystatin SUSP 5 ML UD.LIQ PO SCH ×4 (07:53→21:04)
[2019-02-16] MEDS: Famotidine 20 MG TABLET PO SCH ×2 (07:53→21:04)
[2019-02-16] MEDS: Furosemide 40 MG TABLET PO SCH ×2 (07:53→16:19)
[2019-02-16] MEDS: Multivit/Ca/Min/Fe/FA 1 TAB TABLET PO SCH (07:53)
[2019-02-16] MEDS: Vancomycin Oral Soln 125 MG/2.5 ML UDC PO SCH ×4 (07:54→21:06)
[2019-02-16] MEDS: Mirabegron [Myrbetriq] 50 MG PO SCH (08:06)
--- NOTE | 2019-02-16 09:57 | Internal Med Progress Note ---
Date of Encounter: 02/16/19 Time of Encounter: 09:55 - Assessment and plan (1) Atrial fibrillation Current Visit: Yes Status: Chronic Assessment and plan: Continue Coumadin. Monitor INR. Rate and rhythm stable. Qualifiers: Atrial fibrillation type: chronic Qualified Code(s): I48.2 - Chronic atrial fibrillation (2) C. 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 Patient denies any pain or discomfort. Denies shortness of breath, chest pain, fever, chills, nausea vomiting or diarrhea. bowels moving as normal. appetite improving, maintaining hydration. Remains in contact precautions for c-diff. ambulated 100feet with therapy. - Constitutional Vitals: Temp Pulse Resp BP Pulse Ox 98.6 F 98 16 138/71 97 02/16/19 07:54 02/16/19 07:54 02/16/19 07:54 02/16/19 07:54 02/16/19 07:54 General appearance: Present: cooperative, A&O X 1, A&O X 3, pleasant, no acute distress, answers questions appropriately - Head Head exam: Present: atraumatic, normocephalic - Eye Eye exam: Present: PERRL, conjuntiva pink, sclera anicteric Pupils: Present: PERRL - Neck Neck exam general surgery: Present: supple, trachea midline. Absent: lymphadenopathy - Respiratory Respiratory exam: Present: CTAB. Absent: accessory muscle use, rales, rhonchi, wheezes - Cardiovascular Cardiovascular exam: Present: irregular rhythm, +S1, +S2. Absent: diastolic murmur, gallop, rubs, systolic murmur - GI/Abdominal GI/Abdominal exam: Present: normal bowel sounds, soft, no peritoneal signs. Absent: distended, tenderness - Extremities Exam Extremities exam: Present: warm, radial pulses palpable and symmetrical. Absent: calf tenderness, cyanotic, pedal edema - Neurological Exam Neurological exam: Present: CN II-XII intact, oriented X3, no focal deficits. Absent: pronater drift, facial droop, speech deficit - Skin Skin exam: Present: dry, intact Internal Medicine: Result - Labs CBC & Chem 7: 02/13/19 06:00 02/13/19 06:00 - ABG Interpretation ABG results: PT/INR, D-dimer PT 26.0 Seconds (9.4-12.1) H 02/15/19 06:22 Consult Discharge Plan - Plan Referrals: Corina Seo, WOOD HEEL FITTER MACHINE [Primary Care Provider] -
[2019-02-16 09:59] LABS: Prothrombin Time 22.9 Seconds (9.4-12.1)
[2019-02-16] MEDS ORDERED: *HR* Warfarin 2 MG TABLET PO ONE (18:00)
[2019-02-16] MEDS: Acetaminophen 325 MG TABLET PO PRN (21:06)
[2019-02-17 05:06] LABS: INR 2.3; Prothrombin Time 26.1 Seconds (9.4-12.1)
[2019-02-17] MEDS: Furosemide 40 MG TABLET PO SCH ×2 (08:08→16:22)
[2019-02-17] MEDS: Metoprolol XL (24 HR) Succ 25 MG TAB.ER.24H PO SCH (08:08)
[2019-02-17] MEDS: Famotidine 20 MG TABLET PO SCH ×2 (08:08→19:50)
[2019-02-17] MEDS: Lactobacillus 1 EACH CAP.SPRINK PO SCH (08:08)
[2019-02-17] MEDS: Ascorbic Acid 500 MG TABLET PO SCH ×2 (08:08→19:50)
[2019-02-17] MEDS: Multivit/Ca/Min/Fe/FA 1 TAB TABLET PO SCH (08:08)
[2019-02-17] MEDS: *HR* Glimepiride 2 MG TABLET PO SCH (08:08)
[2019-02-17] MEDS: Nystatin SUSP 5 ML UD.LIQ PO SCH ×4 (08:08→19:50)
[2019-02-17] MEDS: Vancomycin Oral Soln 125 MG/2.5 ML UDC PO SCH ×4 (08:09→19:49)
[2019-02-17] MEDS: Mirabegron [Myrbetriq] 50 MG PO SCH (08:17)
--- NOTE | 2019-02-17 09:56 | Internal Med Progress Note ---
Date of Encounter: 02/17/19 Time of Encounter: 09:54 - Assessment and plan (1) C. difficile colitis Current Visit: Yes Status: Acute Assessment and plan: Patient has had complaints of nausea this morning. No vomiting. Patient c ontinues with loose stools. We will continue on oral vancomycin. Afebrile. (2) Atrial fibrillation Current Visit: Yes Status: Chronic Assessment and plan: No acute issues. Patient's heart rate has remained controlled less than 100. Patient continues on current medication Qualifiers: Atrial fibrillation type: chronic Qualified Code(s): I48.2 - Chronic atrial fibrillation (3) CAD (coronary artery disease) Current Visit: Yes Status: Chronic Assessment and plan: No acute issues. Patient denies any chest palpitations or discomforts. We will continue on current medications. Vital signs stable Qualifiers: Coronary Disease-Associated Artery/Lesion type: unspecified vessel or lesion type [place] vs. transplanted heart: [place] heart Associated angina: angina presence unspecified Qualified Code(s): I25.10 - Atherosclerotic heart disease of [place] coronary artery without angina pectoris (4) HTN (hypertension) Current Visit: Yes Status: Chronic Assessment and plan: Vital signs remained stable. We will continue on current medications. Qualifiers: Hypertension type: essential hypertension Qualified Code(s): I10 - Essential (primary) hypertension (5) Diabetes Current Visit: Yes Status: Chronic Assessment and plan: Patient's glucose remains poorly controlled with most fingersticks readings greater than 200. Nursing has reported patient with noncompliance with diet where she will not eat much on her trays but will eat different foods that were brought in that are high calorie. Patient's diet was discussed with patient and her daughter. Treatment plans were discussed and we will continue with current fingersticks and sliding scale insulin. Qualifiers: Diabetes mellitus type: type 2 Diabetes mellitus assisted insulin use: without emt intermediate use Diabetes mellitus complication status: without complication Qualified Code(s): E11.9 - Type 2 diabetes mellitus without complications (6) Dementia Current Visit: Yes Status: Chronic Assessment and plan: No acute issues. No reported behavior issues from nursing and therapy staff will patient will refuse therapy or treatment at times. 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 Patient with complaints of nausea this morning which she states began before breakfast. Denies any vomiting or abdominal discomforts. - Constitutional Vitals: Temp Pulse Resp BP Pulse Ox 98.7 F 84 14 144/80 92 02/17/19 07:00 02/17/19 08:15 02/17/19 07:00 02/17/19 08:15 02/17/19 07:00 General appearance: Present: cooperative, A&O X 1, A&O X 3, pleasant, no acute distress, answers questions appropriately - Head Head exam: Present: atraumatic, normocephalic - Eye Eye exam: Present: PERRL, conjuntiva pink, sclera anicteric Pupils: Present: PERRL - Neck Neck exam general surgery: Present: supple, trachea midline. Absent: lymphadenopathy - Respiratory Respiratory exam: Present: decreased breath sounds, CTAB, rales. Absent: accessory muscle use, rhonchi, wheezes Additional comments: Respiratory effort appears relaxed while at rest. Patient's lungs are clear throughout upper ware but noted fine posterior basilar rales. No productive cough noted. - Cardiovascular Cardiovascular exam: Present: irregular rhythm, RRR, +S1, +S2. Absent: diastolic murmur, gallop, rubs, systolic murmur Additional comments: Heart rate remains irregular with a controlled ventricular rate less than 100. - GI/Abdominal GI/Abdominal exam: Present: normal bowel sounds, soft, no peritoneal signs. Absent: distended, tenderness - Extremities Exam Extremities exam: Present: warm, radial pulses palpable and symmetrical. Absent: calf tenderness, cyanotic, pedal edema - Neurological Exam Neurological exam: Present: CN II-XII intact, oriented X3, no focal deficits. Absent: pronater drift, facial droop, speech deficit - Skin Skin exam: Present: dry, intact Internal Medicine: Result - Labs CBC & Chem 7: 02/13/19 06:00 02/13/19 06:00 - ABG Interpretation ABG results: PT/INR, D-dimer PT 26.1 Seconds (9.4-12.1) H 02/17/19 04:54 Consult Discharge Plan - Plan Referrals: Corina Seo, SHIRT LINE OPERATOR [Primary Care Provider] -
--- NOTE | 2019-02-17 11:20 | Discharge Summary ---
<Francisco Javier Calderon R - Last Filed: 02/17/19 11:15> Orders not resulted at time of discharge: Pending orders 02/18/19 06:12 INR/PT [Prothrombin Time INR] [COAG] DAILY - Discharge Diagnosis (1) C. difficile colitis Priority: Primary Status: Acute Comments: Patient continues on oral vancomycin 4 times a day for C. difficile and will complete her antibiotic regimen on 02/22/19 (2) Atrial fibrillation Priority: Secondary Status: Chronic Comments: No acute issues during her stay of facility. Patient's heart rate has remained stable and controlled less than 100 ventricular rate. We will continue with her current medications Qualifiers: Atrial fibrillation type: chronic Qualified Code(s): I48.2 - Chronic atrial fibrillation (3) CAD (coronary artery disease) Priority: Secondary Status: Chronic Comments: No acute issues during stay of facility. Patient denies any chest discomforts or palpitations. We will continue with current medications. 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 Qualifiers: Coronary Disease-Associated Artery/Lesion type: unspecified vessel or lesion type [place] vs. transplanted heart: [place] heart Associated angina: angina presence unspecified Qualified Code(s): I25.10 - Atherosclerotic heart disease of [place] coronary artery without angina pectoris (4) HTN (hypertension) Priority: Secondary Status: Chronic Comments: Vital signs are remaining stable during her stay of facility. Patient is continue with home medications and follow-up with PCP after discharge Qualifiers: Hypertension type: essential hypertension Qualified Code(s): I10 - Essential (primary) hypertension (5) Diabetes Priority: Secondary Status: Chronic Comments: Patients glucose has been elevated during her stay. Questionable compliance with diet. Patient is continue with her home medications and follow-up with her PCP within one week after discharge for further evaluation and treatment. 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 Patient at times is noncompliant with treatment. Currently patient appears relaxed and is appropriate with conversation. We will continue with follow-up with PCP. Patient is being discharged home with daughter Qualifiers: Dementia type: unspecified type Qualified Code(s): F03.91 - Unspecified dementia with behavioral disturbance Hospital course: Ms. Cárdenas is a 88 year old female, who was transferred to this facility for further rehabilitation due to generalized weakness after being hospitalized for C. difficile. Patient continues on vancomycin at this time with her course due to finish on 02/22/19. Patient continues with loose stools. Has remained afebrile during her stay. Patient with a history of COPD and CHF and continues with current medications. Patient has had titration of diuretics after being ad mitted to this facility. Patient also has had issues with dementia, having episodes of agitation and noncompliance. Patient also continues to have elevated glucose levels and is being discharged home with her home medications. Patient is to follow-up with her PCP within one week for further evaluation and treatment. Patient is to follow-up with therapy through outpatient services of home health care. Discharge discussed with: patient Time spent discussing smoking cessation with patient: 3 to 10 minutes - Time Spent with Patient Total time spent providing and/or coordinating discharge services: Time spent: Less than 30 minutes - Discharge Medications Prescriptions: New Vancomycin HCl 250 mg PO QID 5 Days #30 cap No Action Simvastatin [Zocor] 20 mg PO HS Potassium Chloride [K-Tab ER] 20 meq PO DAILY Glimepiride [Amaryl] 2 mg PO DAILY Furosemide [Lasix] 40 mg PO BID Nitroglycerin [Nitrostat] 0.4 mg SL Q5M PRN PRN Reason: Chest Pain Ferrous Sulfate [Iron] 325 mg PO DAILY Oxygen 2 l NS HS Multivitamin [One Daily Multivitamin] 1 tab PO DAILY Albuterol Sulfate [Proair Hfa] 2 puff IH Q4H PRN PRN Reason: Shortness Of Breath Fluticasone Propionate Nasal [Flonase] 1 spray IN BID PRN PRN Reason: Allergy Symptoms Warfarin [Coumadin] 2 mg PO DAILY Ranitidine HCl [Heartburn Relief] 150 mg PO BID DULoxetine [Cymbalta] 30 mg PO DAILY Metoprolol Succinate [Toprol Xl] 25 mg PO DAILY Mirabegron [Myrbetriq] 50 mg PO DAILY Acetaminophen [Tylenol Arthritis] 1,300 mg PO BID Vancomycin Oral Soln [Firvanq] 250 mg PO QID 11 Days udc Nitrofurantoin (BID) [Macrobid] 100 mg PO BIDWM #7 capsule HYDROcodone/Acet 7.5/325 mg [[place] 7.5-325 mg] 0.5 tab PO TID PRN 5 Days #15 tablet PRN Reason: Pain Home Medications: Ferrous Sulfate [Iron] 325 mg PO DAILY 07/12/17 [History] Furosemide [Lasix] 40 mg PO BID 07/12/17 [History] Glimepiride [Amaryl] 2 mg PO DAILY 07/12/17 [History] Nitroglycerin [Nitrostat] 0.4 mg SL Q5M PRN 07/12/17 [History] Potassium Chloride [K-Tab ER] 20 meq PO DAILY 07/12/17 [History] Simvastatin [Zocor] 20 mg PO HS 07/12/17 [History] Albuterol Sulfate [Proair Hfa] 2 puff IH Q4H PRN 10/18/17 [History] Multivitamin [One Daily Multivitamin] 1 tab PO DAILY 10/18/17 [History] Oxygen 2 l NS HS 10/18/17 [History] Fluticasone Propionate Nasal [Flonase] 1 spray IN BID PRN 01/24/19 [History] Ranitidine HCl [Heartburn Relief] 150 mg PO BID 01/24/19 [History] Warfarin [Coumadin] 2 mg PO DAILY 01/24/19 [History] Acetaminophen [Tylenol Arthritis] 1,300 mg PO BID 01/25/19 [History] DULoxetine [Cymbalta] 30 mg PO DAILY 01/25/19 [History] Metoprolol Succinate [Toprol Xl] 25 mg PO DAILY 01/25/19 [History] Mirabegron [Myrbetriq] 50 mg PO DAILY 01/25/19 [History] HYDROcodone/Acet 7.5/325 mg [[place] 7.5-325 mg] 0.5 tab PO TID PRN 5 Days #15 tablet 02/09/19 [Rx] Nitrofurantoin (BID) [Macrobid] 100 mg PO BIDWM #7 capsule 02/09/19 [Rx] Vancomycin Oral Soln [Firvanq] 250 mg PO QID 11 Days udc 02/09/19 [Rx] Vancomycin HCl 250 mg PO QID 5 Days #30 cap 02/17/19 [Rx] Allergies/Adverse Reactions: Allergy/AdvReac Type Severity Reaction Status Date / Time Penicillins AdvReac Anaphylaxis Verified 01/25/19 08:37 Date of admission: 02/09/19 17:23 Primary care physician: Corina Seo CNP Consults: 02/09/19 19:14 Consult to Occupational Therapy [CONS] Routine Comment: eval for weakness/therapy Reason for Consult: eval for weakness for therapy Does patient have active BEDREST order?: No Is patient medically & hemodynamically stable?: Yes Patient assessed for mobility or mobilized this visit?: No Consult to Physical Therapy [CONS] Routine Comment: eval for therapy Reason for Consult: admission eval for therapy Does patient have active BEDREST order?: No Is patient medically & hemodynamically stable?: Yes Patient assessed for mobility or mobilized this visit?: No Consult to Recreational Therapy [CONS] Routine Comment: Consult to Social Research Assistant [CONS] Routine Reason for SW Consult: D/C eval 02/09/19 19:19 Consult to Nutrition [CONS] Routine Comment: Consulting Provider: NUTRITION Reason for Dietary Consult: Diet Education PO Supplementation Discharging clinician: Jayson Ochoa - Constitutional Vitals: Temp Pulse Resp BP Pulse Ox 98.7 F 84 14 144/80 92 02/17/19 07:00 02/17/19 08:15 02/17/19 07:00 02/17/19 08:15 02/17/19 07:00 General appearance: Present: cooperative, A&O X 1, A&O X 3, pleasant, no acute distress, answers questions appropriately - Head Head exam: Present: atraumatic, normocephalic - Eye Eye exam: Present: PERRL, conjuntiva pink, sclera anicteric Pupils: Present: PERRL - Neck Neck exam general surgery: Present: supple, trachea midline. Absent: lymphadenopathy - Respiratory Respiratory exam: Present: decreased breath sounds, CTAB, rales. Absent: accessory muscle use, rhonchi, wheezes Additional comments: Patient continues with fine bibasilar rales her to posterior ware. Respiratory of appears relaxed. - Cardiovascular Cardiovascular exam: Present: RRR, +S1, +S2. Absent: diastolic murmur, gallop, rubs, systolic murmur - GI/Abdominal GI/Abdominal exam: Present: normal bowel sounds, soft, no peritoneal signs. Absent: distended, tenderness - Extremities Exam Extremities exam: Present: warm, radial pulses palpable and symmetrical. Absent: calf tenderness, cyanotic, pedal edema - Neurological Exam Neurological exam: Present: CN II-XII intact, oriented X3, no focal deficits. Absent: pronater drift, facial droop, speech deficit - Skin Skin exam: Present: dry, intact - Patient Status Disposition: Home Health Service Condition: Fair Functional capacity at discharge: uses cane/walker Overall status at discharge: patient is progressing back to baseline - Discharge Instructions Follow Up With: Corina Seo CNP [Primary Care Provider] - - Diet and Activity Activity: ambulate only with your walker, as per physical therapy, increase activity as tolerated Diet: diabetic diet, low fat, low cholesterol, low salt diet <Jayson Ochoa - Last Filed: 02/18/19 11:02> - NOTES TO OUTPATIENT PROVIDER Notes to Outpatient Provider: Sugars have been at times hypoglycemic but also markedly elevated. Patient was initially with poor intake and this is improving but still not optimized. Family will watch sugar at home and further arrangements per primary care provider. Orders not resulted at time of discharge: Pending orders 02/18/19 09:30 INR/PT [Prothrombin Time INR] [COAG] DAILY Date of Encounter: 02/18/19 Time of Encounter: 09:52 Hospital course: Patient is without complaint this morning. He is totally denies abdominal pain or nausea. She states that her bowel movements are still loose but nearly formed. No hematochezia or melena. She denies other problems and is looking forward to going home. Patient has no complaint of chest discomfort, dyspnea, orthopnea, palpitations, nausea or vomiting, constipation or diarrhea, other changes in bowel habits, difficulty with urination, rash or itching, or other new complaints, except as mentioned above. Review of systems is otherwise negative. I discussed management of patient's care with nursing staff. - Time Spent with Patient Total time spent providing and/or coordinating discharge services: Date of admission: 02/09/19 17:23 Primary care physician: Corina Seo CNP Consults: 02/09/19 19:14 Consult to Occupational Therapy [CONS] Routine Comment: eval for weakness/therapy Reason for Consult: eval for weakness for therapy Does patient have active BEDREST order?: No Is patient medically & hemodynamically stable?: Yes Patient assessed for mobility or mobilized this visit?: No Consult to Physical Therapy [CONS] Routine Comment: eval for therapy Reason for Consult: admission eval for therapy Does patient have active BEDREST order?: No Is patient medically & hemodynamically stable?: Yes Patient assessed for mobility or mobilized this visit?: No Consult to Recreational Therapy [CONS] Routine Comment: Consult to Social Research Assistant [CONS] Routine Reason for SW Consult: D/C eval 02/09/19 19:19 Consult to Nutrition [CONS] Routine Comment: Consulting Provider: NUTRITION Reason for Dietary Consult: Diet Education PO Supplementation - Constitutional Vitals: Temp Pulse Resp BP Pulse Ox 98.6 F 95 16 144/80 92 02/17/19 19:54 02/17/19 19:54 02/17/19 19:54 02/17/19 08:15 02/17/19 19:54 Exam: Examination: (Except as mentioned above): General: In no apparent distress. Alert and oriented 3. Nondiaphoretic. She is on oxygen at 2 L by nasal cannula. Head: Atraumatic and normocephalic. Respiratory: No use of accessory muscles. Lungs are clear throughout. Normal airflow. Cardiovascular: Regular rate and rhythm without murmur appreciated. Abdomen: Bowel sounds are normal. No hepatosplenomegaly mass or tenderness appreciated. Obese and therefore difficult to palpate deeply. Extremities: No cyanosis clubbing or edema. Skin: Warm and non-diaphoretic with no new lesions noted.
[2019-02-17] MEDS ORDERED: *HR* Warfarin 2 MG TABLET PO ONE (18:00)
[2019-02-18] MEDS: Furosemide 40 MG TABLET PO SCH (08:08)
[2019-02-18] MEDS: Famotidine 20 MG TABLET PO SCH (08:08)
[2019-02-18] MEDS: Multivit/Ca/Min/Fe/FA 1 TAB TABLET PO SCH (08:08)
[2019-02-18] MEDS: Vancomycin Oral Soln 125 MG/2.5 ML UDC PO SCH ×2 (08:09→13:11)
[2019-02-18] MEDS: Metoprolol XL (24 HR) Succ 25 MG TAB.ER.24H PO SCH (08:09)
[2019-02-18] MEDS: Nystatin SUSP 5 ML UD.LIQ PO SCH ×2 (08:09→13:11)
[2019-02-18] MEDS: Mirabegron [Myrbetriq] 50 MG PO SCH (08:09)
[2019-02-18] MEDS: *HR* Glimepiride 2 MG TABLET PO SCH (08:09)
[2019-02-18] MEDS: Ascorbic Acid 500 MG TABLET PO SCH (08:09)
[2019-02-18] MEDS: Lactobacillus 1 EACH CAP.SPRINK PO SCH (08:09)
[2019-02-18 10:21] LABS: INR 2.4; Prothrombin Time 27.8 Seconds (9.4-12.1)
[2019-02-18 10:33] VITALS: BP 143/80
--- NOTE | 2019-02-18 14:59 | Physician Discharge Referral ---
Home Health/Hosp Referral Info Transfer to: Home Health Provider in Charge Post Discharge: PCP - Diagnosis (1) C. 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 For more information, call the [place] Tobacco Quit Line at 3-184-BCUG-NOW. - Diet/Nutrition Diet/Nutrition Orders: No Added Salt (YARITZA), Cardiac, No Concentrated Sweets - Activity Activity Orders: Walker - Services Needed Following services are medically necessary services: Nursing, Home Health Aide, Physical Therapy - Transfer Medications Prescriptions: Vancomycin HCl 250 mg PO QID 5 Days #30 cap Home Medications: Ferrous Sulfate [Iron] 325 mg PO DAILY 07/12/17 [History] Furosemide [Lasix] 40 mg PO BID 07/12/17 [History] Glimepiride [Amaryl] 2 mg PO DAILY 07/12/17 [History] Nitroglycerin [Nitrostat] 0.4 mg SL Q5M PRN 07/12/17 [History] Potassium Chloride [K-Tab ER] 20 meq PO DAILY 07/12/17 [History] Simvastatin [Zocor] 20 mg PO HS 07/12/17 [History] Albuterol Sulfate [Proair Hfa] 2 puff IH Q4H PRN 10/18/17 [History] Multivitamin [One Daily Multivitamin] 1 tab PO DAILY 10/18/17 [History] Oxygen 2 l NS HS 10/18/17 [History] Fluticasone Propionate Nasal [Flonase] 1 spray IN BID PRN 01/24/19 [History] Ranitidine HCl [Heartburn Relief] 150 mg PO BID 01/24/19 [History] Warfarin [Coumadin] 2 mg PO DAILY 01/24/19 [History] Acetaminophen [Tylenol Arthritis] 1,300 mg PO BID 01/25/19 [History] DULoxetine [Cymbalta] 30 mg PO DAILY 01/25/19 [History] Metoprolol Succinate [Toprol Xl] 25 mg PO DAILY 01/25/19 [History] Mirabegron [Myrbetriq] 50 mg PO DAILY 01/25/19 [History] HYDROcodone/Acet 7.5/325 mg [[place] 7.5-325 mg] 0.5 tab PO TID PRN 5 Days #15 tablet 02/09/19 [Rx] Nitrofurantoin (BID) [Macrobid] 100 mg PO BIDWM #7 capsule 02/09/19 [Rx] Vancomycin Oral Soln [Firvanq] 250 mg PO QID 11 Days udc 02/09/19 [Rx] Vancomycin HCl 250 mg PO QID 5 Days #30 cap 02/17/19 [Rx] Allergies/Adverse Reactions: Allergy/AdvReac Type Severity Reaction Status Date / Time Penicillins AdvReac Anaphylaxis Verified 01/25/19 08:37 Certification: Further, I certify that my clinical findings support that this patient is ho mebound (i.e. absences from home require considerable and taxing effort and are for medical reasons or jew services or infrequently or short duration when for other reasons) because: Homebound Reason: Patient requires assistance of a person or device to safely leave home, Leaving home requires considerable and taxing effort due to condition, Altered mental status requiring supervision when leaving home, Severity of cardiac or pulmonary status limits activity tolerance Attestation: My signature below is to certify that this patient is under my care and that I, or nurse practitioner, or a physician's ophthalmic medical assistant working with me, has a [id number] encounter with this patient.
== END 2019-02-18 13:20 | disposition home health service (06) | DRG 372 ==
LOC: INPGRE 17:23